=== PATIENT | female | born 1985 | race Caucasian/White ===

== ENCOUNTER 2017-06-19 13:25 | Inpatient (IN) | payer OTHER ==
[2017-06-19] MEDS ORDERED: Oxytocin in LR* 20 UNITS/1,000 ML BAG IVPB SCH (16:00)
[2017-06-19] MEDS ORDERED: Lidocaine 1% MPF* 2 ML VIAL ONE (16:17)
[2017-06-19 16:20] LABS: Hematocrit 39 % (35-47); Hemoglobin 13.2 g/dl (12.0-16.0); Mean Corpuscular HGB Conc 34 g/dl (31-36); Mean Corpuscular Hemoglobin 32 pg (27-31); Mean Corpuscular Volume 95 fL (80-97); Mean Platelet Volume 10 um3 (7.4-10.4); Red Blood Count 4.12 10^6/ul (4.0-5.4); Red Cell Distribution Width 14 % (10.5-15); White Blood Count 11.4 10^3/ul (3.5-10.8)
[2017-06-19] MEDS ORDERED: Oxytocin in LR* 20 UNITS/1,000 ML BAG IVPB ONE (16:23)
[2017-06-19] MEDS ORDERED: Insulin NPH(*) 1 UNITS UNIT SUBCUT ONE (20:23)
[2017-06-19] MEDS ORDERED: Promethazine INJ(RESTRICTED)* 25 MG/ML 1 ML VIAL IV PRN (22:01)
[2017-06-19] MEDS ORDERED: Nalbuphine* 20 MG/ML 1 ML VIAL IV PRN (22:01)
[2017-06-20] MEDS ORDERED: OBEPIDURAL* 250 ML ONE (01:00)
[2017-06-20] MEDS ORDERED: fentaNYL* 50 MCG/ML 2 ML VIAL (100 MCG VIAL) ONE (01:01)
[2017-06-20] MEDS ORDERED: Phenylephrine IV* 40 MCG/ML 10 ML SYRINGE IV PUSH PRN ×2 (01:42)
[2017-06-20] MEDS ORDERED: Sodium Citrate/Citric Acid* 15 ML UDC PO PRN (01:42)
[2017-06-20] MEDS ORDERED: Famotidine TAB* 20 MG PO PRN (01:42)
[2017-06-20] MEDS ORDERED: OBEPIDURAL* 250 ML EPIDURAL SCH (02:00)
[2017-06-20] MEDS ORDERED: D5NS 0.9% 1000 ML BAG* 1,000 ML IV SCH (02:00)
[2017-06-20] MEDS: Insulin REGULAR(*) 1 UNITS UNIT SUBCUT SCH ×7 (09:10→14:37)
[2017-06-20] MEDS ORDERED: Dibucaine 1% 28.35 GM TUBE ONE (11:58)
[2017-06-20] MEDS ORDERED: Witch Hazel PAD* JAR ONE (11:59)
[2017-06-20] MEDS ORDERED: oxyCODONE/Acetamin 5/325 MG* TAB ONE (12:40)
[2017-06-20] MEDS ORDERED: Ibuprofen TAB* 600 MG ONE (12:41)
[2017-06-20] MEDS ORDERED: Ibuprofen TAB* 600 MG PO PRN (13:31)
[2017-06-20] MEDS ORDERED: Glycerin ADULT SUPP PR PRN (13:31)
[2017-06-20] MEDS: Docusate CAP* 100 MG PO SCH ×2 (14:40→21:19)
[2017-06-20] MEDS: oxyCODONE/Acetamin 5/325 MG* TAB PO PRN ×2 (17:21→21:19)
[2017-06-20] MEDS ORDERED: Simethicone CHEW TAB* 80 MG PO SCH (17:30)
[2017-06-21] MEDS: oxyCODONE/Acetamin 5/325 MG* TAB PO PRN ×4 (01:16→15:04)
[2017-06-21] MEDS: Dibucaine 1% 28.35 GM TUBE PR PRN (01:16)
[2017-06-21 07:59] LABS: Hematocrit 32 % (35-47); Hemoglobin 10.7 g/dl (12.0-16.0); Mean Corpuscular HGB Conc 33 g/dl (31-36); Mean Corpuscular Hemoglobin 32 pg (27-31); Mean Corpuscular Volume 97 fL (80-97); Red Cell Distribution Width 14 % (10.5-15); White Blood Count 14.2 10^3/ul (3.5-10.8)
[2017-06-21 08:00] LABS: Add Diff/Slide Review? Slide Review Added; Comments Flag Yes
[2017-06-21] MEDS: Docusate CAP* 100 MG PO SCH ×3 (09:16→20:07)
[2017-06-21] MEDS: Ferrous Gluconate TAB* 324 MG TAB PO SCH (09:16)
[2017-06-21 09:43] LABS: Mean Platelet Volume 10 um3 (7.4-10.4)
[2017-06-21] MEDS: Witch Hazel PAD* JAR TOPICAL PRN (16:00)
[2017-06-21] MEDS: Acetaminophen TAB* 325 MG PO PRN (20:06)
[2017-06-21] MEDS ORDERED: RHO D Immune Globulin (HUMAN)* 300 MCG = 1,500 I.U. INJ IM ONE (22:10)
[2017-06-22] MEDS: Acetaminophen TAB* 325 MG PO PRN ×3 (02:39→11:57)
[2017-06-22] MEDS: Ferrous Gluconate TAB* 324 MG TAB PO SCH (02:41)
[2017-06-22] MEDS: Docusate CAP* 100 MG PO SCH ×2 (07:41→14:49)
[2017-06-22 08:11] VITALS: BP 124/64
[2017-06-22] MEDS: Ibuprofen TAB* 600 MG PO PRN ×2 (08:21→14:49)
--- NOTE | 2017-06-22 09:19 | PTEDU ---
Patient Name: YSABEL SANDHU YSABEL SANDHU selected video: Never Ever Shake a Baby to view on 06/22/2017 at 9:18:15 AM from [email or web address]_ [id number]
--- NOTE | 2017-06-22 09:21 | PTEDU ---
Patient Name: YSABEL SANDHU YSABEL SANDHU selected video: Never Ever Shake a Baby to view on 06/22/2017 at 9:20:49 AM from [facility]_ [id number]
--- NOTE | 2017-06-22 09:40 | PTEDU ---
Patient Name: YSABEL SANDHU YSABEL SANDHU selected video: Follow Me Mum: [employer] [place] [employer] to view on 7 at 9:40:15 AM from [email or web address]
[2017-06-22] MEDS: Witch Hazel PAD* JAR TOPICAL PRN (09:47)
[2017-06-22] MEDS: Dibucaine 1% 28.35 GM TUBE PR PRN (09:47)
== END 2017-06-22 14:54 | disposition home or self-care (01) | DRG 775 ==
LOC: MCHOBOUT 13:25 → MCHOB 15:43
PROVIDERS: ADMIT Obstetrics & Gynecology; ATTEND Obstetrics & Gynecology
PROC: 3E033VJ Introduction of Other Hormone into Peripheral Vein, Percutaneous Approach (ICD-10-PCS; principal; 2017-06-19)
PROC: 10E0XZZ Delivery of Products of Conception, External Approach (ICD-10-PCS; 2017-06-19)
PROC: 0KQM0ZZ Repair Perineum Muscle, Open Approach (ICD-10-PCS; 2017-06-19)
PROC: 4A1HX4Z Monitoring of Products of Conception, Cardiac Electrical Activity, External Approach (ICD-10-PCS; 2017-06-19)
DX: O24.424 Gestational diabetes mellitus in childbirth, insulin controlled (principal); O70.1 Second degree perineal laceration during delivery; Z3A.39 39 weeks gestation of pregnancy; Z37.0 Single live birth; Z88.0 Allergy status to penicillin; Z88.8 Allergy status to other drugs, medicaments and biological substances
CPT/HCPCS: 36415; 85025; 85461; 86850; 86870; 86880; 86900; 86901; A9270-GY; J2300; J2550; J2790; J3010